=== PATIENT | female | born 1965 | race Caucasian/White ===

== ENCOUNTER 2023-11-08 18:46 | Emergency (ER) | payer MEDICARE, MEDICAID ==
[~2023-11-08] VITALS: Ht 175.3 cm; Wt 90.9 kg
[2023-11-08 18:48] VITALS: BP 159/131; PULSE 70; RESP 20; TEMP 97.8; O2SAT 94
== END 2023-11-08 19:24 ==
LOC: ER 18:46
DX: F10.129 Alcohol abuse with intoxication, unspecified (principal); Y90.9 Presence of alcohol in blood, level not specified
CPT/HCPCS: 93005; 99283

== ENCOUNTER 2025-01-24 19:01 | Emergency (ER) | payer MEDICARE, MEDICAID ==
[~2025-01-24] VITALS: Ht 175.3 cm; Wt 81.8 kg
[2025-01-24 21:17] VITALS: BP 124/50; PULSE 60; RESP 18; TEMP 98.6; O2SAT 99
== END 2025-01-24 21:18 | disposition home or self-care (01) ==
LOC: ER 19:03
DX: F19.10 Other psychoactive substance abuse, uncomplicated (principal); F15.90 Other stimulant use, unspecified, uncomplicated; G89.29 Other chronic pain; M54.9 Dorsalgia, unspecified; Z88.0 Allergy status to penicillin
CPT/HCPCS: 99281